=== PATIENT | male | born 1990 | race Hispanic/Latino ===

== ENCOUNTER 2025-03-17 17:08 | Emergency (ER) | payer BC | END 2025-03-17 18:33 | disposition home or self-care (01) | LOC: ERS 17:08 | DX: S00.83XA Contusion of other part of head, initial encounter (principal); M26.622 Arthralgia of left temporomandibular joint; X58.XXXA Exposure to other specified factors, initial encounter; Y99.0 Civilian activity done for income or pay | CPT/HCPCS: 70486 ==